=== PATIENT | female | born 1985 | race Caucasian/White ===

== ENCOUNTER 2017-11-04 13:56 | Emergency (ER) | payer OTHER ==
[2017-11-04] MEDS: DIPHENHYDRAMINE 25 MG CAP PO (17:55)
[2017-11-04] MEDS: METHYLPREDNISOLONE 125 MG INJ IM (17:55)
[2017-11-04] MEDS: FAMOTIDINE 20 MG TAB PO (17:55)
[2017-11-04 20:04] LABS: MONOTEST Negative (NEG)
== END 2017-11-04 21:57 | disposition home or self-care (01) ==
LOC: FTE 13:56
DX: R21 Rash and other nonspecific skin eruption (principal)
CPT/HCPCS: 36415; 86308; 87880; 96372; 99284-25